=== PATIENT | male | born 1960 | race Caucasian/White ===

== ENCOUNTER → 2021-10-03 | Outpatient (REF) ==
[~2021-10-03] MED LIST: NORC1TAB7 PO
--- NOTE | 2021-10-03 14:22 | REP ---
INDICATION: LEFT LOWER QUADRANT PAIN. COMPARISON: None TECHNIQUE: AP, lateral, open-mouth, and swimmer's view FINDINGS: Limited evaluation of the cervical spine shows mild posterior disc space narrowing at every level. The C6-7 and C7-T1 levels are poorly evaluated even with the swimmer's view. The facet joints appear to be well aligned bilaterally. Vertebral body height and alignment appears to be within normal limits. The dens cannot be effectively evaluated secondary to the superimposition of osseous structures and/or dentition on all views. IMPRESSION: No gross abnormalities identified on this limited exam. <Electronically signed by Cameron Turner > 10/03/21 [id number]
--- NOTE | 2021-10-03 14:28 | REP ---
INDICATION: LEFT LOWER QUADRANT PAIN. COMPARISON: None TECHNIQUE: AP and lateral views FINDINGS: There is moderate posterior disc space narrowing at every level. Vertebral body height and alignment is within normal limits. There is marginal osteophytosis seen particularly on the right at L4-5. Degenerative facet joint changes seen bilaterally at every level particularly L4-5 and L5-S1. IMPRESSION: Chronic changes seen on this limited exam as described above. <Electronically signed by Cameron Turner > 10/03/21 [id number]
== END ==
LOC: M PLAIMG 11:25
PROVIDERS: ATTEND Internal Medicine
DX: Z00.00 Encounter for general adult medical examination without abnormal findings (principal)

== ENCOUNTER → 2024-09-25 | Outpatient (CLI) | payer OTHER ==
[~2024-09-25] MED LIST changes: +ISOVUE-370 76% 100ML VIAL As Ordered ONE
== END ==
LOC: M RAD 14:04
PROVIDERS: ATTEND Internal Medicine Hematology & Oncology
DX: I26.99 Other pulmonary embolism without acute cor pulmonale (principal); K44.9 Diaphragmatic hernia without obstruction or gangrene; K57.30 Diverticulosis of large intestine without perforation or abscess without bleeding; K76.0 Fatty (change of) liver, not elsewhere classified
CPT/HCPCS: 74177; Q9967

== ENCOUNTER → 2024-11-02 | Outpatient (CLI) | payer OTHER ==
[~2024-11-02] MED LIST changes: -ISOVUE-370 76% 100ML VIAL As Ordered ONE
== END ==
LOC: M RAD 15:45
PROVIDERS: ATTEND Internal Medicine Hematology & Oncology
DX: E04.1 Nontoxic single thyroid nodule (principal)